=== PATIENT | female | born 1960 | race Caucasian/White ===

== ENCOUNTER 2016-11-01 08:37 | Emergency (ER) | payer OTHER ==
[~2016-11-01] VITALS: Ht 170.2 cm; Wt 73.9 kg
[2016-11-01 08:41] VITALS: BP 158/89
--- NOTE | 2016-11-01 08:48 | ED UPPER/LOWER EXTREMITY COMPL ---
History of Present Illness General Chief Complaint: Lower Extremity Injury Stated Complaint: UNABLE TO MOVE RT LEG/RT KNEE INJURY Source: patient, old records Exam Limitations: no limitations Vital Signs & Intake/Output Vital Signs & Intake/Output Vital Signs Date Time Temp Pulse Resp B/P Pulse O2 O2 Flow FiO2 Ox Delivery Rate 11/01 0841 96.1 76 18 158/89 96 Room Air Allergies Coded Allergies: Penicillins (Severe, HIVES 11/01/16) erythromycin base (GI DISTRESS 11/01/16) Reconcile Medications Desloratadine (Clarinex) 5 MG TABLET 1 TAB PO DAILY ALLERGIES (Reported) Pantoprazole Sodium 40 MG TABLET.DR 1 TAB PO DAILY GI (Reported) Tramadol HCl 50 MG TABLET 1 TAB PO BIDP PRN PAIN Triage Note: 56 Y/0 FEMALE C/O R KNEE PAIN AND SWELLING; STATES SHE "FELT A TUG" IN KNEE 4 WEEKS AGO WHILE CLEANING HOUSE. CALLED ORTHO DOCTOR AND HAD STEROIDS PRESCRIBED. STATES THE SYMPTOMS IMPROVED AND SHE STARTED PHYSICAL THERAPY FOR SAME. THIS AM, FELT A "SHARP" PAIN BEHIND R KNEE WITH RADIATION OF PAIN DOWN TO ANKLE. DID NOT CALL ORTHO THIS MORNING. IN W/C FOR COMFORT. Triage Nurses Notes Reviewed? yes Onset: Abrupt Duration: day(s): (2-3), constant Timing: recent history Severity: moderate Severity Numbers: 8 Pain/Injury Location: Right: Knee. Method of Injury: unknown Modifying Factors: Improves With: pain medication, rest. Worsens With: movement. Associated Symptoms: swelling HPI: 56-year-old female with history of chronic right knee pain presents complaining of throbbing aching pain sudden in onset that she has had for the past few days. She states as though she has a "pulling sensation" in the posterior aspect of her right lateral knee.. The patient states that she's had pain in that knee for the past 4 weeks for which she was seen by an orthopedist in [place] and had begun physical therapy. She states she was there yesterday and they were using ultrasound on her leg which was causing her pain while using the bicycle as well. She took ibuprofen for her symptoms without improvement. The pain is aching throbbing nonradiating no back hip or foot or ankle pain pain is worse with attempted range of motion of the knee she denies any redness warmth just her skin. She reports intermittent swelling to the knee (ASHLEIGH VELARDE) Past History Travel History Traveled to [place] past 21 day No Medical History Any Pertinent Medical History? 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 No (ASHLEIGH VELARDE) Review of Systems Review of Systems Constitutional: Reports: see HPI. All Other Systems: Reviewed and Negative Comments Review of systems: See HPI, All other systems negative. Constitutional, no chills no fever, no malaise HEENT: no sore throat no congestion, no ear pain Cardiovascular: No chest pain , no palpitation , Skin, no jaundice no rashes, no change in skin Respiratory: No dyspnea no cough no sputum GI: No nausea no vomiting, no diarrhea, : No dysuria Muscle skeletal: joint pain, no joint swelling, no back pain, no neck pain, Neurologic: No numbness no confusion, no headache Psych: No stress Heme/endocrine: No bruising no bleeding Immunology: No lymphadenopathy, (ASHLEIGH VELARDE) Physical Exam Physical Exam General Appearance: well developed/nourished, alert, awake Comments: Well-developed well-nourished patient in no apparent distress. HEENT: Atraumatic, extraocular motion intact Neck: Supple, FROM Back: FROM Cardiovascular: Regular rate and rhythms no murmurs rubs Respiratory: No respiratory distress. Patient speaking in full complete sentences. Breath sounds clear to auscultation bilaterally: NO W/R/R Upper Extremities: full range of motion Hip/Pelvis: Atraumatic/Stable. FROM. No pain with pelvic compression Knee: Atraumatic/stable. FROM. No joint swelling, no effusion. No laxity. Negative elie/anterior drawer test. No pain with ROM Leg: Atraumatic. Nontender. No edema, 5 out of 5 strength in the lower extremity, normal dorsiflexion of great toe bilaterally, gross sensation is intact, patellar tendon reflex 2+ bilaterally. Ankle/Foot: Atraumatic/stable. Skin intact. FROM. No swelling, no effusion. No laxity on exam Pulses: Normal/equal DP/PT pulses bilaterally. Brisk cap refill Neuro: Alert and oriented x3 Skin: Warm & dry;No appreciable rash on exposed skin Psych: Mood affect normal, normal memory normal judgment. (ASHLEIGH VELARDE) Progress Differential Diagnosis: contusion, dislocation, DVT, fracture, sprain, tendon injury, BAKERS CYST Plan of Care: Orders Procedure Date/time Status Durable Medical Equipment 11/01 1031 Active US ORDERED. Patient declining anything started and Motrin for pain Discussed with the patient her ultrasound results need for supportive care close follow-up with orthopedist this week, advised rest ice leg immobilizer was applied, I answered all her questions refill comfortable plan. Prescription for tramadol was provided (ASHLEIGH VELARDE) Diagnostic Imaging: Viewed by Me: Ultrasound. Discussed w/RAD: Ultrasound. Radiology Impression: PATIENT: JAYME HERNANDEZ PRESENT AGE: 56 PATIENT ACCOUNT NO: [id number] : 60 LOCATION: [facility] ORDERING PHYSICIAN: ASHLEIGH FULLER SERVICE DATE: 11/01/16 EXAM TYPE: US - US- UNILATERAL VENOUS DOPPLER EXAMINATION: US TRIPLEX LOWER EXTREMITY, RIGHT CLINICAL INFORMATION: Right lower extremity pain and swelling. COMPARISON: None TECHNIQUE: Color-flow triplex imaging with spectral analysis and compression Doppler were performed on the right lower extremity. FINDINGS: Respiratory variation, normal compression and augmented flow are noted throughout the lower extremity. The visualized common femoral vein, superficial femoral vein, profunda femoral vein, popliteal vein and midcalf peroneal and posterior tibial venous segments show no evidence of deep venous thrombosis. There is mild soft tissue swelling over the anterolateral knee, without discrete fluid collections. No fluid collections are noted in the popliteal fossa. IMPRESSION: 1. Normal Triplex scan without evidence of deep venous thrombosis involving the right lower extremity. 2. There are no focal fluid collections. DICTATED BY: ZHAO MCKAY MD DATE/TIME DICTATED:11/01/161016 PURIFICATION OPERATOR:JENNIFER DATE/TIME TRANSCRIBED:11/01/161016 CONFIDENTIAL, DO NOT COPY WITHOUT APPROPRIATE AUTHORIZATION. <Electronically signed in Other Vendor System> SIGNED BY: ZHAO MCKAY MD 11/01/16 1022 (ASHLEIGH VELARDE) Departure Departure Time of Disposition: 1024 Disposition: HOME OR SELF CARE Condition: Stable Clinical Impression Primary Impression: Knee sprain Referrals: ANNETTE CLARKE,BRITTANY Jose (PCP/Family) Additional Instructions: Follow-up with your orthopedist this week. Leg immobilizer and crutches as discussed. Tramadol for breakthrough pain continue taking naproxen, keep leg elevated ice as needed return to the emergency room with any concerns Departure Forms: Customer Survey General Discharge Information Prescriptions: Current Visit Scripts Tramadol HCl 1 TAB PO BIDP PRN PAIN #15 TAB (JONEL FULLER,ASHLEIGH) PA/HEALTH NAVIGATOR Co-Sign Statement Statement: ED Attending supervision documentation- [] I saw and evaluated the patient. I have also reviewed all the pertinent lab results and diagnostic results. I agree with the findings and the plan of care as documented in the PA's/HEALTH NAVIGATOR's documentation. x I have reviewed the ED Record and agree with the PA's/HEALTH NAVIGATOR's documentation. [] Additions or exceptions (if any) to the PAs/HEALTH NAVIGATOR's note and plan are summarized below: [] (KRISH CLARKE,LUCIA)
--- NOTE | 2016-11-01 10:22 | ULTRASOUND REPORT ---
EXAMINATION: US TRIPLEX LOWER EXTREMITY, RIGHT CLINICAL INFORMATION: Right lower extremity pain and swelling. COMPARISON: None TECHNIQUE: Color-flow triplex imaging with spectral analysis and compression Doppler were performed on the right lower extremity. FINDINGS: Respiratory variation, normal compression and augmented flow are noted throughout the lower extremity. The visualized common femoral vein, superficial femoral vein, profunda femoral vein, popliteal vein and midcalf peroneal and posterior tibial venous segments show no evidence of deep venous thrombosis. There is mild soft tissue swelling over the anterolateral knee, without discrete fluid collections. No fluid collections are noted in the popliteal fossa. IMPRESSION: 1. Normal Triplex scan without evidence of deep venous thrombosis involving the right lower extremity. 2. There are no focal fluid collections.
[2016-11-01] MEDS ORDERED: TRAMADOL HCL50 M1 PO (10:32)
[2016-11-01] MEDS ORDERED: CLARINEX5 M1 PO (10:41)
[2016-11-01] MEDS ORDERED: PANTOPRAZOLE SO40 M1 PO (10:41)
[2016-11-01] MEDS ORDERED: AMOXICILLIN875 M1 PO (11:12)
== END 2016-11-01 10:36 ==
LOC: ERH 08:37
DX: S83.91XA Sprain of unspecified site of right knee, initial encounter (principal); M79.661 Pain in right lower leg; X58.XXXA Exposure to other specified factors, initial encounter; Y93.9 Activity, unspecified